=== PATIENT | male | born 1940 | race Caucasian/White ===

== ENCOUNTER 2018-11-11 20:43 | Emergency (ER) | payer MEDICARE, BC ==
[~2018-11-11] VITALS: Ht 175.3 cm; Wt 76.8 kg
[2018-11-11 20:54] VITALS: Ht 175.3 cm; Wt 76.8 kg
[2018-11-11] MEDS ORDERED: GLUCOPHAGE500 MG PO (20:55)
[2018-11-11] MEDS ORDERED: BAYER CHEWABLE81 MG PO (20:56)
[2018-11-11] MEDS ORDERED: PRAVACHOL20 MG PO (20:56)
[2018-11-11] MEDS ORDERED: LISINOPRIL5 MG PO (20:56)
[2018-11-11] MEDS ORDERED: LIPITOR20 MG PO (20:56)
[2018-11-11] MEDS ORDERED: GLUCOPHAGE1000 MG PO (20:56)
[2018-11-11 21:19] LABS: BASOPHILS 0.5 % (0-2); EOSINOPHILS 1.9 % (0-7); HEMATOCRIT 41.3 % (42.0-54.0); HEMOGLOBIN 14.3 g/dL (13.5-17.5); IMMATURE GRANULOCYTES 0.5 % (0-5); LYMPHOCYTES 23.9 % (15-50); MCH 30.4 pg (26.0-34.0); MCHC 34.6 g/dL (31.0-37.0); MCV 87.9 fL (80.0-100.0); MEAN PLATELET VOLUME 10.4 fL (7.4-10.4); MONOCYTES 6.5 % (2-11); NEUTROPHILS 66.7 % (40-80); PLATELET COUNT 168 10x3/uL (130-400); RDW 13.5 % (11.5-14.5); WBC 6.3 10x3/uL (4.8-10.8)
[2018-11-11 21:31] LABS: APPEARANCE CLEAR (CLEAR); BILIRUBIN NEGATIVE (NEGATIVE); COLOR YELLOW (YELLOW); GLUCOSE 1000 mg/dL (NEGATIVE); KETONE SMALL mg/dL (NEGATIVE); NITRITE NEGATIVE (NEGATIVE); PROTEIN NEGATIVE (NEGATIVE); UROBILINOGEN NORMAL (NORMAL)
[2018-11-11 21:32] LABS: KETONE - SERUM NEGATIVE (NEGATIVE)
[2018-11-11 21:36] LABS: ALBUMIN 4.2 g/dL (3.4-5.0); ALKALINE PHOSPHATASE 190 U/L (46-116); ALT (SGPT) 563 U/L (10-68); BILIRUBIN - TOTAL 0.75 mg/dL (0.2-1.3); CALCIUM 9.7 mg/dL (8.5-10.1); CARBON DIOXIDE 24.4 mmol/L (21.0-32.0); CHLORIDE - SERUM 97 mmol/L (98-107); CREATININE - SERUM 1.5 mg/dL (0.6-1.3); MAGNESIUM - SERUM 2.1 mg/dL (1.8-2.4); POTASSIUM - SERUM 5.6 mmol/L (3.5-5.1); PROTEIN - SERUM 7.9 g/dL (6.4-8.2); SODIUM 133 mmol/L (136-145); UREA NITROGEN 36 mg/dL (7-18); eGFR NON AFRICAN AMERICAN 48 mL/min (90-120)
[2018-11-11 21:49] LABS: CALC OSMOLALITY 302 mosm/kg (275-300)
[2018-11-11 21:53] LABS: GLUCOSE 622 mg/dL (74-106)
[2018-11-12 00:19] VITALS: BP 123/75
== END 2018-11-12 00:05 | disposition home or self-care (01) ==
LOC: D.ER 20:43
PROVIDERS: Family Medicine
DX: E11.65 Type 2 diabetes mellitus with hyperglycemia (principal); N28.9 Disorder of kidney and ureter, unspecified